=== PATIENT | female | born 2000 | race Two or more races ===

== ENCOUNTER 2024-05-04 21:03 | Emergency (ER) | payer OTHER ==
[~2024-05-04] VITALS: Ht 180.3 cm; Wt 106.6 kg
[2024-05-04 21:30] VITALS: BP 121/77; O2SAT 98
[2024-05-04] MEDS ORDERED: LACTOBACILLUS ACIDOPHILUS 1 CAP CAP PO STA (21:34)
[2024-05-04] MEDS ORDERED: FAMOTIDINE/PF 20 MG/2 ML VIAL IV PUSH STA (21:34)
[2024-05-04] MEDS ORDERED: ONDANSETRON HCL 2 MG/ML VIAL IV STA (21:34)
[2024-05-04] MEDS ORDERED: 0.9 % SODIUM CHLORIDE 1,000 ML IV STA (21:36)
[2024-05-04] MEDS ORDERED: ACETAMINOPHEN 325 MG TABLET PO STA (21:48)
[2024-05-04 23:05] LABS: HEMATOCRIT 37.4 % (36.0-45.00); HEMOGLOBIN 12.5 g/dL (12.0-15.00); MEAN CELL VOLUME 81.2 fL (80.00-100.00); MEAN CORPUSCULAR HEMOGLOBIN 27.1 pg (27.00-32.0); MEAN CORPUSCULAR HGB CONC 33.4 g/dl (32.0-36.0); PLATELET COUNT 217 K/uL (150-450); RED CELL DISTRIBUTION WIDTH 13.9 % (11.5-14.5)
[2024-05-04 23:26] LABS: BILIRUBIN TOTAL 0.29 mg/dL (0.3-1.2); CREATININE SERUM 0.84 mg/dL (0.55-1.02); GFR 83.3; POTASSIUM 4.06 mEq/L (3.5-5.1)
[2024-05-04] MEDS ORDERED: KETOROLAC TROMETHAMINE 30 MG VIAL IM STA (23:32)
== END 2024-05-04 23:58 | disposition home or self-care (01) ==
LOC: ER 21:06
PROVIDERS: General Practice
DX: R50.9 Fever, unspecified (principal); Z88.0 Allergy status to penicillin; Z20.822 Contact with and (suspected) exposure to COVID-19